=== PATIENT | female | born 1990 | race Caucasian/White ===

== ENCOUNTER 2020-03-19 09:06 | Outpatient (RCR) | payer OTHER, SELFPAY | END 2020-03-23 23:59 | LOC: EMPH 09:06 | PROVIDERS: Visit Provider Family Medicine Geriatric Medicine | DX: U07.1 COVID-19 (principal) | CPT/HCPCS: 87426; 87635; U0002 ==

== ENCOUNTER 2020-05-18 09:07 | Outpatient (RCR) | payer SELFPAY | END 2020-05-23 23:59 | LOC: EMPH 09:07 | PROVIDERS: PCP Preventive Medicine Occupational Medicine; Referring Provider Family Medicine Geriatric Medicine; Visit Provider Family Medicine Geriatric Medicine | DX: Z03.818 Encounter for observation for suspected exposure to other biological agents ruled out (principal) ==

== ENCOUNTER 2020-06-21 08:21 | Outpatient (RCR) | payer OTHER, SELFPAY | END 2020-06-23 23:59 | LOC: EMPH 08:21 | PROVIDERS: PCP Preventive Medicine Occupational Medicine; Referring Provider Family Medicine Geriatric Medicine; Visit Provider Family Medicine Geriatric Medicine | DX: Z03.818 Encounter for observation for suspected exposure to other biological agents ruled out (principal) | CPT/HCPCS: 87426 ==

== ENCOUNTER → 2022-04-25 | Outpatient (CLI) | payer OTHER, SELFPAY ==
[2022-04-25 08:12] LABS: Cholesterol 93 mg/dL (200); Glucose 90 mg/dL (74-106); High Density Lipoprotein 46 mg/dL; Triglycerides 24 mg/dL; Very Low Density Lipoprotein 5 mg/dL (5-40)
== END | disposition home or self-care (01) ==
LOC: LAB 06:59
PROVIDERS: PCP Nurse Practitioner Primary Care; Referring Provider Nurse Practitioner Primary Care; Visit Provider Nurse Practitioner Primary Care
DX: Z00.00 Encounter for general adult medical examination without abnormal findings (principal)
CPT/HCPCS: 36415; 80061; 82947